=== PATIENT | male | born 1970 ===

== ENCOUNTER 2022-03-23 12:42 | Emergency (ER) | payer OTHER ==
[2022-03-23 13:46] LABS: HEMOGLOBIN 16.6 gm/dl (14.0-17.5); RED BLOOD COUNT 5.4 M/UL (4.20-5.50); WHITE BLOOD COUNT 12.7 K/UL (4.5-11.0)
[2022-03-23 14:09] LABS: BUN/CREATININE RATIO 14 (0-10)
[2022-03-23] MEDS ORDERED: HYDROCODON-ACE1 EAC4 PO (15:52)
[2022-03-23] MEDS ORDERED: BACTROBAN OINT22 GM EXT (15:52)
== END 2022-03-23 16:05 | disposition home or self-care (01) ==
LOC: ER1 12:42
PROVIDERS: Emergency Medicine
DX: S61.411A Laceration without foreign body of right hand, initial encounter (principal); S13.9XXA Sprain of joints and ligaments of unspecified parts of neck, initial encounter; S33.5XXA Sprain of ligaments of lumbar spine, initial encounter; S20.219A Contusion of unspecified front wall of thorax, initial encounter; S60.222A Contusion of left hand, initial encounter; R51.9 Headache, unspecified; R10.9 Unspecified abdominal pain; V43.52XA Car driver injured in collision with other type car in traffic accident, initial encounter; W22.10XA Striking against or struck by unspecified automobile airbag, initial encounter; Y92.410 Unspecified street and highway as the place of occurrence of the external cause
CPT/HCPCS: 70450; 71046; 72125; 73130; 80053; 81001; 85025; 90471; 90715; 99284; Q9967